=== PATIENT | female | born 1975 | race Two or more races ===

== ENCOUNTER 2019-01-02 09:20 | Emergency (ER) | payer OTHER ==
[~2019-01-02] VITALS: Ht 157.5 cm; Wt 68.0 kg
[~2019-01-02 09:20] MED LIST: LISINOPRIL5 MG ORAL
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
[2019-01-02 09:41] VITALS: BP 159/93
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
--- NOTE | 2019-01-02 09:45 | NUR ---
ED Nurse Note: pre sales technical consultant on bedside
--- NOTE | 2019-01-02 10:25 | NUR ---
ED Nurse Note: lab reportedneg preg. pt went to ct with tech.
--- NOTE | 2019-01-02 10:37 | NUR ---
ED Nurse Note: pt went back from ct with tech.
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
--- NOTE | 2019-01-02 11:15 | NUR ---
ED Nurse Note: pt went to xray with tech
--- NOTE | 2019-01-02 11:26 | NUR ---
ED Nurse Note: pt went back from xray
[2019-01-02] MEDS ORDERED: NORCO 5-325 TA1 EACH ORAL (11:43)
[2019-01-02] MEDS ORDERED: CYCLOBENZAPRINE10 MG ORAL (11:43)
[2019-01-02] MEDS ORDERED: IBUPROFEN600 MG ORAL (11:43)
[2019-01-02] MEDS ORDERED: ZITHROMAX250 MG ORAL (11:45)
[2019-01-02 11:50] VITALS: BP 118/68
--- NOTE | 2019-01-02 11:50 | NUR ---
ER DISCHARGE NOTE: Patient is cleared to be discharged per ERMD, pt is aox4, on room air, with stable vital signs. pt was given dc and prescription instructions, pt was able to verbalize understanding, pt id band removed without complications. pt is able to ambulate with steady gait. pt took all belongings.
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
== END 2019-01-02 11:50 | disposition home or self-care (01) ==
LOC: EDBD 09:20 → EMR 09:50
DX: S09.90XA Unspecified injury of head, initial encounter (principal); S46.912A Strain of unspecified muscle, fascia and tendon at shoulder and upper arm level, left arm, initial encounter; S76.012A Strain of muscle, fascia and tendon of left hip, initial encounter; S16.1XXA Strain of muscle, fascia and tendon at neck level, initial encounter; V43.52XA Car driver injured in collision with other type car in traffic accident, initial encounter; Y92.410 Unspecified street and highway as the place of occurrence of the external cause; I10 Essential (primary) hypertension; S00.212A Abrasion of left eyelid and periocular area, initial encounter
CPT/HCPCS: 70450; 71045; 72040; 72170; 73502; 81025; 99284